=== PATIENT | male | born 1980 | race Caucasian/White ===

== ENCOUNTER 2020-07-14 21:29 | Emergency (ER) | payer BC, OTHER ==
[2020-07-14 21:42] VITALS: BMI 31.4
--- NOTE | 2020-07-14 22:23 | PDOC ---
History of Present Illness - General Chief Complaint: Chest Pain Stated Complaint: CHEST PAIN Time Seen by Provider: 07/14/20 22:11 History Source: Patient Exam Limitations: No Limitations Past History - Travel History Traveled outside of the country in the last 30 days: No Close contact w/someone who was outside of country & ill: No - Medical History Allergies/Adverse Reactions: Allergies Allergy/AdvReac Type Severity Reaction Status Date / Time shellfish derived Allergy Verified 11/28/16 21:36 Home Medications: Ambulatory Orders Azithromycin [Zithromax -] 250 mg PO UTDICT #6 tab 11/29/16 Metoclopramide HCl [Reglan -] 10 mg PO QID #28 tablet 11/29/16 COPD: No - Psycho-Social/Smoking History Smoking History: Former smoker Have you smoked in the past 12 months: No If you are a former smoker, when did you quit?: 10 Information on smoking cessation initiated: No 'Breaking Loose' booklet given: 11/28/16 - Substance Abuse Hx (Audit-C & DAST Scrn) How often the patient has a drink containing alcohol: Never Score: In Men: 4 or > Positive; In Women: 3 or > Positive: 0 Screen Result (Pos requires Nsg. Audit-10AR): Negative In the last yr the pt used illegal drug/Rx for NonMed reason: No Score: Yes response is considered Positive: 0 Screen Result (Positive result requires Nsg. DAST-10): Negative Review of Systems - Review of Systems Able to Perform ROS?: Yes Comments:: 07/14/20 22:41 CONSTITUTIONAL: Absent: fever, chills, diaphoresis, generalized weakness, malaise, loss of appetite HEENT: Absent: rhinorrhea, nasal congestion, throat pain, throat swelling, difficulty swallowing, mouth swelling, ear pain, eye pain, visual Changes CARDIOVASCULAR: Present: Chest pain, palpitations Absent: loss of consciousness, irregular heart rate, peripheral edema RESPIRATORY: Absent: cough, shortness of breath, dyspnea with exertion, orthopnea, wheezing, stridor, hemoptysis GASTROINTESTINAL: Absent: abdominal pain, abdominal distension, nausea, vomiting, diarrhea, constipation, melena, hematochezia GENITOURINARY: Absent: dysuria, frequency, urgency, hesitancy, hematuria, flank pain, genital pain MUSCULOSKELETAL: Absent: myalgia, arthralgia, joint swelling SKIN: Absent: rash, itching, pallor HEMATOLOGIC/IMMUNOLOGIC: Absent: easy bleeding, easy bruising, lymphadenopathy, frequent infections ENDOCRINE: Absent: unexplained weight gain, unexplained weight loss, heat intolerance, cold intolerance NEUROLOGIC: Absent: headache, focal weakness or paresthesias, dizziness, unsteady gait, seizure, mental status changes, bladder or bowel incontinence PSYCHIATRIC: Absent: anxiety, depression, suicidal or homicidal ideation, hallucinations. Is the patient limited Salvadorean proficient: No *Physical Exam - Vital Signs Last Vital Signs Temp Pulse Resp BP Pulse Ox 98.3 F 60 19 161/101 H 07/14/20 21:30 07/14/20 21:30 07/14/20 21:30 07/14/20 21:30 - Physical Exam 07/14/20 22:41 GENERAL: Well developed, well nourished. Awake and alert. No acute distress. HEENT: Normocephalic, atraumatic. PERRLA, EOMI. No conjunctival pallor. Sclera are non- icteric. Moist mucous membranes. Oropharynx is clear. NECK: Supple. Full ROM. No JVD. Carotid pulses 2+ and symmetric, without bruits. No thyromegaly. No lymphadenopathy. CARDIOVASCULAR: Regular rate and rhythm. No murmurs, rubs, or gallops. Distal pulses are 2+ and symmetric. PULMONARY: No evidence of respiratory distress. Lungs clear to auscultation bilaterally. No wheezing, rales or rhonchi. ABDOMINAL: Soft. Non-tender. Non-distended. No rebound or guarding. No organomegaly. Normoactive bowel sounds. MUSCULOSKELETAL Normal range of motion at all joints. No bony deformities or tenderness. No CVA tenderness. EXTREMITIES: No cyanosis. No clubbing. No edema. No calf tenderness. SKIN: Warm and dry. Normal capillary refill. No rashes. No jaundice. NEUROLOGICAL: Alert, awake, appropriate. Cranial nerves 2-12 intact. No deficits to light touch and temperature in face, upper extremities and lower extremities. No motor deficits in the in face, upper extremities and lower extremities. Normoreflexic in the upper and lower extremities. Normal speech. Toes are down-going bilaterally. Gait is normal without ataxia. PSYCHIATRIC: Cooperative. Good eye contact. Appropriate mood and affect. Heart Score/ECG Review - History History: Slightly suspicious - Electrocardiogram EKG: Normal - Age Age: </= 45 - Risk Factors Based on the list above the patient has:: No risk factors known ED Treatment Course - LABORATORY CBC & Chemistry Diagram: 07/14/20 23:05 07/14/20 23:05 Medical Decision Making - Medical Decision Making 07/14/20 22:42 Patient is a 39-year-old male no past medical history, who presents to the ER with chest pain starting approximately 1 hour prior to arrival. He states that he was getting ready to go to dinner when he felt a dull sensation in the left side of his chest. He states that the pain got worse and traveled down his left arm. He thought he was going to pass out due to the pain while he was driving. He states that he pulled over and the sensation decreased. He states that now he still has a dull pain in the left side of his chest however the arm pain has resolved. He states this is happened to him twice in the past. He also endorses palpitations during this episode. He is not followed up with a claims manager. Denies fevers, chills, cold exposure, difficulty breathing, shortness of breath, nausea, vomiting and diarrhea. A/P: Chest pain Exam is essentially benign. ECG shows a rate of 76 bpm with a normal sinus rhythm and sinus arrhythmia. Normal intervals and axis. Flipped T wave in lead III.. No evidence of AL prolongation, Brugada. Differential diagnosis includes ACS, anxiety, arrhythmia, hyperthyroidism. Basic labs drawn, chest x-ray ordered Patient will likely need a second troponin at 1 PM. 07/15/20 00:[address] Sign out given to Dr. Varghese Pending second troponin, anticipate DC Discharge - Discharge Information Problems reviewed: Yes Clinical Impression/Diagnosis: Chest pain Qualifiers: Chest pain type: unspecified Qualified Code(s): R07.9 - Chest pain, unspecified Condition: Stable - Follow up/Referral - Patient Discharge Instructions - Post Discharge Activity
[2020-07-14 23:13] LABS: BASO % 0.7 % (0-2.0); EOS % 2.4 % (0-4.5); HEMATOCRIT 44.4 % (35.4-49); HEMOGLOBIN 14.5 GM/dL (11.7-16.9); MCH 27.3 pg (25.7-33.7); MCHC 32.7 g/dl (32.0-35.9); MEAN CELL VOLUME 83.4 fl (80-96); MEAN PLT VOLUME 9.6 fl (7.5-11.1); MONO % 9.8 % (3.8-10.2); NEUT % 67.1 % (42.8-82.8); PLATELET COUNT 293 K/MM3 (134-434); RBC 5.33 M/mm3 (4.00-5.60); RDW 13.2 % (11.9-15.9); WHITE BLOOD COUNT 9.4 K/mm3 (4.0-10.0)
[2020-07-14 23:20] LABS: INR 0.96 (0.83-1.09); PROTHROMBIN TIME (PATIENT) 11.3 SEC (9.7-13.0)
--- NOTE | 2020-07-14 23:32 | PDOC ---
*Physical Exam - Vital Signs Last Vital Signs Temp Pulse Resp BP Pulse Ox 98.3 F 60 19 161/101 H 07/14/20 21:30 07/14/20 21:30 07/14/20 21:30 07/14/20 21:30 - Physical Exam 07/14/20 23:29 Gen: aaox3, nad heart: +s1s2 reg, no anterior chest wall ttp lungs: cta b/l abd: soft, nt/nd +bs ext: no c/c/e Heart Score/ECG Review - ECG Intrepretation Comment:: 07/14/20 23:30 sinus at 76, nl axis, nl interval, t wave inversions III which are nonspecific, no acute st changes ED Treatment Course - LABORATORY CBC & Chemistry Diagram: 07/14/20 23:05 07/14/20 23:05 - ADDITIONAL ORDERS Additional order review: Laboratory Results 07/14/20 23:05 PT with INR 11.30 INR 0.96 07/14/20 23:05 RBC 5.33 MCV 83.4 MCHC 32.7 RDW 13.2 MPV 9.6 D Neutrophils % 67.1 Lymphocytes % 20.0 D Monocytes % 9.8 Eosinophils % 2.4 Basophils % 0.7 Medical Decision Making - Medical Decision Making 07/14/20 23:30 a/p: 39yo male with an episode of cp tonight -also felt palpitations -states he felt L arm pain -states he felt nervous also -will send trop x 2, ekg, cxr -pt also states at night he does feel anxious - has thought about seeing a therapist in the future, discussed the importance of this in detail -will monitor and reassess 07/14/20 23:32 cxr clear cbc stable pending trop 07/14/20 23:55 trop pending pt signed out to the oncoming ed physician pending trops x 2 Discharge - Discharge Information Problems reviewed: Yes Clinical Impression/Diagnosis: Chest pain Condition: Stable - Follow up/Referral - Patient Discharge Instructions - Post Discharge Activity
[2020-07-15] MEDS ORDERED: ACETAMINOPHEN 325 MG TABLET (FP) PO ONE (00:02)
[2020-07-15 00:11] LABS: BLOOD UREA NITROGEN 20.4 mg/dL (7-18); GLUCOSE,RANDOM 95 mg/dL (74-106)
[2020-07-15 00:12] LABS: ALBUMIN 4.3 g/dl (3.4-5.0); ALK PHOS 81 U/L (45-117); ANION GAP 7 MMOL/L (8-16); BILIRUBIN,TOTAL 0.5 mg/dL (0.2-1); CALCIUM 9.4 mg/dL (8.5-10.1); CHLORIDE 106 mmol/L (98-107); CO2 26 mmol/L (21-32); CREATININE 1.1 mg/dL (0.55-1.3); POTASSIUM 4.1 mmol/L (3.5-5.1); SGOT/AST 19 U/L (15-37); SGPT/ALT 35 U/L (13-61); SODIUM 139 mmol/L (136-145); TOT PROT 7.6 g/dl (6.4-8.2)
[2020-07-15] MEDS ORDERED: ACETAMINOPHEN 325 MG TABLET (FP) ONE (01:03)
--- NOTE | 2020-07-15 02:38 | PDOC ---
*Physical Exam - Vital Signs Last Vital Signs Temp Pulse Resp BP Pulse Ox 98.3 F 60 19 161/101 H 07/14/20 21:30 07/14/20 21:30 07/14/20 21:30 07/14/20 21:30 ED Treatment Course - LABORATORY CBC & Chemistry Diagram: 07/14/20 23:05 07/14/20 23:05 - ADDITIONAL ORDERS Additional order review: Laboratory Results 07/15/20 07/14/20 07/14/20 01:54 23:05 23:05 PT with INR 11.30 INR 0.96 Sodium 139 Potassium 4.1 Chloride 106 Carbon Dioxide 26 Anion Gap 7 L BUN 20.4 H Creatinine 1.1 Est GFR (CKD-EPI)AfAm 98.18 Est GFR (CKD-EPI)NonAf 84.71 Random Glucose 95 Calcium 9.4 Total Bilirubin 0.5 AST 19 ALT 35 Alkaline Phosphatase 81 Creatine Kinase 195 Creatine Kinase Index 0.7 CK-MB (CK-2) 1.5 Troponin I < 0.02 < 0.02 Total Protein 7.6 Albumin 4.3 TSH 0.70 07/14/20 23:05 RBC 5.33 MCV 83.4 MCHC 32.7 RDW 13.2 MPV 9.6 D Neutrophils % 67.1 Lymphocytes % 20.0 D Monocytes % 9.8 Eosinophils % 2.4 Basophils % 0.7 - Medications Given in the ED: ED Medications Discontinued Medications Generic Name Dose Route Start Last Admin Trade Name Freq PRN Reason Stop Dose Admin Acetaminophen 650 mg 07/15/20 00:02 07/15/20 01:39 Tylenol - PO 07/15/20 00:03 650 mg ONCE ONE Administration Medical Decision Making - Medical Decision Making Pt was signed out to me by Maris Gonzalez, who explained the presentation, ED course, any pending results, and needed interventions. Pending results include repeat/delta troponin at 3 hours. Pt is currently stable and is lying comfortably. Pts repeat troponin <.02. Pts pain resolved Electrolytes, TSH, H/H WNL Pt has f/u appointment made in clinic. Pt safe for d/c to home with PCP f/u. Strict return precautions provided with pt understanding. 07/15/20 02:38 Discharge - Discharge Information Problems reviewed: Yes Clinical Impression/Diagnosis: Chest pain Qualifiers: Chest pain type: unspecified Qualified Code(s): R07.9 - Chest pain, unspecified Condition: Improved Disposition: HOME - Admission No - Follow up/Referral - Patient Discharge Instructions Patient Printed Discharge Instructions: DI for Atypical Chest Pain Additional Instructions: You were seen in the ER today for chest pain. The results of your labs and imaging today were normal. Please follow-up with your primary care doctor within 1-2 days to discuss your visit and make sure your symptoms have improved. Please return to the ER if you have any worsening pain, development of fevers or chills, loss of consciousness, inability to tolerate food or fluids, or any other concerns. - Post Discharge Activity
[2020-07-15 03:38] VITALS: BP 157/93; PULSE 58; TEMP 97.2
--- NOTE | 2020-07-15 10:45 | EKG ---
Test Reason : Blood Pressure : / mmHG Vent. Rate : 076 BPM Atrial Rate : 076 BPM P-R Int : 132 ms QRS Dur : 106 ms QT Int : 364 ms P-R-T Axes : 048 048 016 degrees QTc Int : 409 ms NORMAL SINUS RHYTHM WITH SINUS ARRHYTHMIA NON-SPECIFIC INTRA-VENTRICULAR CONDUCTION DELAY NO PREVIOUS ECGS AVAILABLE Confirmed by KULDIP THAO MD ([id number]) on 07/15/2020 10:45:23 AM Referred By: Confirmed By:KULDIP THAO MD
== END 2020-07-15 03:10 | disposition home or self-care (01) ==
LOC: JER 21:29
DX: R07.9 Chest pain, unspecified (principal)
CPT/HCPCS: 36415; 71046-TC-FY; 80053; 82550; 82553; 84443; 84484; 85025; 85610; 93005; 93010; 99284-25

== ENCOUNTER 2021-06-27 21:01 | Emergency (ER) | payer OTHER ==
[2021-06-27 21:17] VITALS: TEMP 98.1; BMI 28.2
[2021-06-27] MEDS ORDERED: ASPIRIN 81 MG CHEWABLE TABLETS PO ONE (21:22)
[2021-06-27] MEDS ORDERED: ASPIRIN 81 MG CHEWABLE TABLETS ONE (21:26)
[2021-06-27 21:56] LABS: BASO % 0.8 % (0-2.0); EOS % 4.4 % (0-4.5); HEMATOCRIT 42.6 % (35.4-49); HEMOGLOBIN 14.1 GM/dL (11.7-16.9); LYMPH % 22.7 % (8-40); MCH 27.1 pg (25.7-33.7); MCHC 33.1 g/dl (32.0-35.9); MEAN CELL VOLUME 81.9 fl (80-96); MEAN PLT VOLUME 8.8 fl (7.5-11.1); MONO % 13.2 % (3.8-10.2); NEUT % 58.9 % (42.8-82.8); PLATELET COUNT 294 10^3/uL (134-434); RBC 5.21 M/mm3 (4.00-5.60); RDW 13.6 % (11.9-15.9); WHITE BLOOD COUNT 8.3 K/mm3 (4.0-10.0)
[2021-06-27 22:22] LABS: CHLORIDE 106 mmol/L (98-107); SODIUM 140 mmol/L (136-145)
[2021-06-27 22:24] LABS: ALBUMIN 4.4 g/dl (3.4-5.0); ANION GAP 6 MMOL/L (8-16); BLOOD UREA NITROGEN 23.1 mg/dL (7-18); CO2 28 mmol/L (21-32); GLUCOSE,RANDOM 85 mg/dL (74-106)
[2021-06-27 22:27] LABS: CREATININE 1.1 mg/dL (0.55-1.3); SGOT/AST 16 U/L (15-37); SGPT/ALT 32 U/L (13-61)
[2021-06-27 22:29] LABS: BILIRUBIN,TOTAL 0.3 mg/dL (0.2-1); TOT PROT 7.6 g/dl (6.4-8.2)
[2021-06-27 22:30] LABS: ALK PHOS 71 U/L (45-117)
[2021-06-28 02:13] VITALS: BP 126/89; PULSE 79
== END 2021-06-28 03:17 | disposition left against medical advice (07) ==
LOC: JER 21:01
DX: R07.9 Chest pain, unspecified (principal)
CPT/HCPCS: 36415; 71046-TC-FY; 80053; 83880; 84484; 85025; 93005; 93010; 99285-25; C9803; U0003; U0005

== ENCOUNTER 2023-02-21 22:12 | Emergency (ER) | payer OTHER ==
[2023-02-21 22:24] VITALS: BP 162/110; PULSE 108; RESP 18; TEMP 100.4; BMI 34.0
[2023-02-21] MEDS ORDERED: NAPROXEN 500 MG TABLET PO ONE (23:43)
[2023-02-21] MEDS ORDERED: NAPROXEN 500 MG TABLET ONE (23:45)
== END 2023-02-22 00:02 | disposition home or self-care (01) ==
LOC: FER 22:12
DX: S83.92XA Sprain of unspecified site of left knee, initial encounter (principal); X50.1XXA Overexertion from prolonged static or awkward postures, initial encounter
CPT/HCPCS: 73562-TC-LT-FY; 99283-25

== ENCOUNTER 2023-03-29 06:16 | Day surgery (SDC) | payer OTHER ==
[2023-03-28 11:20] VITALS: BMI 34.7
[2023-03-29] MEDS ORDERED: BUPIVACAINE HCL/EPINEPHRINE/PF 30 ML VIAL IJ ONE (07:19)
[2023-03-29] MEDS ORDERED: BUPIVACAINE HCL/PF 0.25% (2.5MG/ML) 10 ML VIAL ONE (07:19)
[2023-03-29] MEDS ORDERED: PROPOFOL 40 ML ONE (07:27)
[2023-03-29] MEDS ORDERED: MIDAZOLAM HCL 2 MG/2 ML SINGLE DOSE VIAL ONE (07:27)
[2023-03-29] MEDS ORDERED: DEXAMETHASONE SOD PHOSPHATE 4 MG/1 ML VIAL ONE (07:44)
[2023-03-29] MEDS ORDERED: KETOROLAC TROMETHAMINE 30 MG/1 ML VIAL ONE (07:44)
[2023-03-29] MEDS ORDERED: HYDROmorphone HCL/PF 1 MG/ML VIAL ONE (07:44)
[2023-03-29] MEDS ORDERED: ceFAZolin SODIUM 1 GM VIAL ONE (07:44)
[2023-03-29] MEDS ORDERED: ONDANSETRON 4 MG/2 ML VIAL ONE (07:44)
[2023-03-29] MEDS ORDERED: ACETAMINOPHEN INJECTION 100 ML IVPB ONE (09:36)
[2023-03-29] MEDS ORDERED: FENTANYL CITRATE/PF 50 MCG/ML VIAL ONE ×2 (09:36→09:55)
[2023-03-29] MEDS ORDERED: oxyCODONE HCL 5 MG TABLET ONE (10:35)
[2023-03-29] MEDS ORDERED: oxyCODONE HCL 5 MG TABLET PO PRN (10:37)
[2023-03-29] MEDS ORDERED: ONDANSETRON 4 MG/2 ML VIAL IVPUSH PRN (10:37)
[2023-03-29] MEDS ORDERED: ACETAMINOPHEN 1000 MG/100 ML BAG IVPB ONE (10:37)
[2023-03-29] MEDS ORDERED: LACTATED RINGERS SOLUTION 1,000 ML IV SCH (10:45)
[2023-03-29 10:49] VITALS: TEMP 97.5
[2023-03-29 10:55] VITALS: BP 136/77; PULSE 72; RESP 20
== END 2023-03-29 11:41 | disposition home or self-care (01) ==
LOC: FASU 06:16
PROVIDERS: ATTEND Orthopaedic Surgery
PROC: 0SQD4ZZ Repair Left Knee Joint, Percutaneous Endoscopic Approach (ICD-10-PCS; 2023-03-29)
PROC: 0SQD4ZZ Repair Left Knee Joint, Percutaneous Endoscopic Approach (ICD-10-PCS; principal; 2023-03-29 07:58)
PROC: 0SBD4ZZ Excision of Left Knee Joint, Percutaneous Endoscopic Approach (ICD-10-PCS; 2023-03-29 07:58)
DX: S83.242D Other tear of medial meniscus, current injury, left knee, subsequent encounter (principal); M65.862 Other synovitis and tenosynovitis, left lower leg; M94.262 Chondromalacia, left knee; X58.XXXD Exposure to other specified factors, subsequent encounter
CPT/HCPCS: 94760

== ENCOUNTER 2023-10-25 06:03 | Day surgery (SDC) | payer OTHER ==
[2023-10-21 12:57] VITALS: BMI 32.7
[2023-10-25] MEDS ORDERED: PROPOFOL 40 ML ONE (07:10)
[2023-10-25] MEDS ORDERED: SUCCINYLCHOLINE CHLORIDE 200 MG/10 ML SYRINGE ONE (07:10)
[2023-10-25] MEDS ORDERED: ceFAZolin SODIUM 1 GM VIAL ONE (07:10)
[2023-10-25] MEDS ORDERED: MIDAZOLAM HCL 2 MG/2 ML SINGLE DOSE VIAL ONE (07:11)
[2023-10-25] MEDS ORDERED: SEVOFLURANE 250 ML BTL ONE (07:11)
[2023-10-25] MEDS ORDERED: BUPIVACAINE HCL/EPINEPHRINE/PF 30 ML VIAL IJ ONE (07:13)
[2023-10-25] MEDS ORDERED: BUPIVACAINE HCL/PF 2.5 MG/ML - 30 ML VIAL IJ ONE (07:14)
[2023-10-25] MEDS ORDERED: ACETAMINOPHEN INJECTION 100 ML IVPB ONE (09:28)
[2023-10-25] MEDS ORDERED: ACETAMINOPHEN 1000 MG/100 ML BAG IVPB ONE (09:32)
[2023-10-25] MEDS ORDERED: FENTANYL CITRATE/PF 50 MCG/ML VIAL ONE ×3 (09:38→10:03)
[2023-10-25] MEDS ORDERED: ONDANSETRON 4 MG/2 ML VIAL ONE (09:39)
[2023-10-25] MEDS ORDERED: LACTATED RINGERS SOLUTION 1,000 ML IV SCH (09:45)
[2023-10-25] MEDS ORDERED: oxyCODONE HCL 5 MG TABLET PO PRN (10:05)
[2023-10-25] MEDS: oxyCODONE HCL 5 MG TABLET PO PRN ×2 (10:16→10:17)
[2023-10-25 10:44] VITALS: RESP 18; TEMP 97.6
[2023-10-25 10:46] VITALS: PULSE 77
[2023-10-25 11:33] VITALS: BP 140/78
== END 2023-10-25 11:30 | disposition home or self-care (01) ==
LOC: FASU 06:03
PROVIDERS: ATTEND Orthopaedic Surgery
PROC: 0SBD4ZZ Excision of Left Knee Joint, Percutaneous Endoscopic Approach (ICD-10-PCS; 2023-10-25)
PROC: 0SBD4ZZ Excision of Left Knee Joint, Percutaneous Endoscopic Approach (ICD-10-PCS; principal; 2023-10-25 07:30)
DX: S83.242D Other tear of medial meniscus, current injury, left knee, subsequent encounter (principal); M65.9 Synovitis and tenosynovitis, unspecified; M94.20 Chondromalacia, unspecified site; X58.XXXD Exposure to other specified factors, subsequent encounter
CPT/HCPCS: 94760

== ENCOUNTER 2024-11-11 02:57 | Emergency (ER) | payer SELFPAY ==
[2024-11-11 03:04] VITALS: TEMP 98.2; BMI 31.4
[2024-11-11] MEDS ORDERED: ACETAMINOPHEN INJECTION 100 ML ONE (03:19)
[2024-11-11] MEDS: ACETAMINOPHEN 1000 MG/100 ML BAG IVPB ONE (03:26)
[2024-11-11 03:49] LABS: HEMATOCRIT 45.2 % (35.4-49); HEMOGLOBIN 14.9 GM/dL (11.7-16.9); MCH 26.4 pg (25.7-33.7); MEAN CELL VOLUME 80.2 fl (80-96); MEAN PLT VOLUME 8.9 fl (7.5-11.1); PLATELET COUNT 337 10^3/uL (134-434); RBC 5.64 M/mm3 (4.00-5.60); RDW 13.3 % (11.9-15.9); WHITE BLOOD COUNT 8.7 K/mm3 (4.0-10.0)
[2024-11-11 04:18] VITALS: BP 129/88; PULSE 68; RESP 16
[2024-11-11 04:23] LABS: POTASSIUM 4.2 mmol/L (3.5-5.1)
[2024-11-11 04:26] LABS: CALCIUM 9.4 mg/dL (8.5-10.1)
[2024-11-11 04:27] LABS: ALBUMIN 4.2 g/dl (3.4-5.0); BLOOD UREA NITROGEN 17.7 mg/dL (7-18)
[2024-11-11 04:30] LABS: CREATININE 1.2 mg/dL (0.55-1.3)
[2024-11-11 04:31] LABS: BILIRUBIN,TOTAL 0.3 mg/dL (0.2-1); TOT PROT 7.6 g/dl (6.4-8.2)
== END 2024-11-11 04:52 | disposition home or self-care (01) ==
LOC: FER 02:57
PROC: 3E033NZ Introduction of Analgesics, Hypnotics, Sedatives into Peripheral Vein, Percutaneous Approach (ICD-10-PCS; principal; 2024-11-11)
DX: R07.2 Precordial pain (principal); R11.0 Nausea
CPT/HCPCS: 36415; 80053; 82550; 84484; 85027; 93005; 99284-25; J0131